=== PATIENT | female | born 1940 | race Caucasian/White ===

== ENCOUNTER 2017-06-27 08:34 | Emergency (ER) | payer OTHER ==
[~2017-06-27] VITALS: Ht 160 cm; Wt 56.7 kg
[~2017-06-27 08:34] MED LIST: ASPIRIN325 PO; AUGMENTIN 875875 M1 PO; CALCIUM 600 +1 EA11 PO; COLACE 100 MG100 MG PO; ENOXAPARIN30 MG/0.1 INJECTION; FISH OIL 1,0001 EAC8 PO; MACUVITE TABLE1 EACH PO; MULTIVITAMINS PO; NORCO 5-325 TA1 EACH PO; OXYCODONE HCL 55 MG; OXYIR 5 MG CAPSU5 M1 PO; RED YEAST RICE600 MG PO; VITAMIN B-12500 MCG PO; VITAMIN D1000 UNI1 PO; VOLTAREN GEL 1100 G1
[2017-06-27 09:53] LABS: ABSOLUTE LYMPHOCYTES 0.6 thou/uL (0.8-5.3); ABSOLUTE MONOCYTES 0.5 thou/uL (0.0-1.2); ABSOLUTE NEUTROPHILS 4.9 thou/uL (1.6-8.1); BASOPHILS 0.2 %; EOSINOPHILS 0.3 %; HEMATOCRIT 38.1 % (37.0-47.0); HEMOGLOBIN 12.8 gm/dL (12.0-15.0); LYMPHOCYTES 10.5 %; MCH 29.9 pg (26.0-34.0); MCHC 33.8 g/dL (28.0-37.0); MCV 88.6 fL (80.0-100.0); MONOCYTES 8.2 %; MPV 9.1 fl. (7.2-11.1); NUCLEATED RBCS 0 /100WBC; PLATELET COUNT* 163 thou/uL (150-400); POLYS 80.8 %; RDW-CV 13.2 % (10.5-14.5); WBC 6.1 thou/uL (4.0-11.0)
[2017-06-27 10:00] LABS: CALCIUM 8.3 mg/dL (8.5-10.1); CREATININE 0.7 mg/dL (0.6-1.3); POTASSIUM 3.6 mmol/L (3.5-5.1)
[2017-06-27 10:05] LABS: ALBUMIN 3.1 g/dL (3.4-5.0); TOTAL BILIRUBIN 0.6 mg/dL (<0.1-1.0)
[2017-06-27] MEDS ORDERED: MEDROLDOSEPACK PO (11:20)
[2017-06-27] MEDS ORDERED: WHEELCHAIR1 EACH MISCELL (11:20)
[2017-06-27 11:37] VITALS: BP 128/40
== END 2017-06-27 11:38 | disposition home or self-care (01) ==
LOC: M.ERS 08:34
PROVIDERS: Personal Emergency Response Attendant
DX: S82.892A Other fracture of left lower leg, initial encounter for closed fracture (principal); J06.9 Acute upper respiratory infection, unspecified; B97.89 Other viral agents as the cause of diseases classified elsewhere; M81.0 Age-related osteoporosis without current pathological fracture; Z98.890 Other specified postprocedural states; Z96.651 Presence of right artificial knee joint

== ENCOUNTER → 2017-11-23 | Outpatient (CLI) | payer OTHER ==
[~2017-11-23] MED LIST changes: +MEDROLDOSEPACK PO; +WHEELCHAIR1 EACH MISCELL
== END ==
LOC: M.RAD 09:45
DX: Z12.31 Encounter for screening mammogram for malignant neoplasm of breast (principal)

== ENCOUNTER → 2018-11-29 | Outpatient (CLI) | payer OTHER | LOC: M.RAD 08:52 | DX: Z12.31 Encounter for screening mammogram for malignant neoplasm of breast (principal) ==

== ENCOUNTER → 2019-12-03 | Outpatient (CLI) | payer OTHER | LOC: M.RAD 14:00 | PROVIDERS: ATTEND Family Medicine | DX: Z12.31 Encounter for screening mammogram for malignant neoplasm of breast (principal) ==

== ENCOUNTER → 2020-06-03 | Outpatient (CLI) | payer OTHER ==
--- NOTE | 2020-06-03 16:36 | 2DMMODE ---
[place] [address] 2 D/M-MODE ECHOCARDIOGRAM Name: FE BLOCK Room: [facility]#: [id number] Admission: 06/03/20 Attend Phys: Yan Guan Discharge: Date of : 40 Date of Service: 06/03/20 1636 Report #: [id number] THIS REPORT FOR: cc: Elliott Marr MD, Matthew W. MD Liston, Michael J. MD [facility] ~ APPROVED REPORT Study performed: 06/03/2020 13:53:27 EXAM: Comprehensive 2D, Doppler, and color-flow Echocardiogram Patient Location: Out-Patient BSA: 1.58 HR: 60 bpm BP: 134/60 mmHg Other Information Study Quality: Good Indications Murmur 2D Dimensions IVSd: 10.86 (7-11mm) LVOT Diam: 20.27 (18-24mm) LVDd: 42.47 mm PWd: 10.26 (7-11mm) Ascending Ao: 27.33 (22-36mm) LVDs: 23.20 (25-40mm) Aortic Root: 29.37 mm Volumes Left Atrial Volume (Systole) LA ESV Index: 13.00 mL/m2 Aortic Valve AoV Peak Jas.: 1.00 m/s AO Peak Gr.: 3.97 mmHg LVOT Max P.39 mmHg AO Mean Gr.: 1.89 mmHg LVOT Mean P.13 mmHg LVOT Max V: 0.77 m/s AO V2 VTI: 21.09 cm LVOT Mean V: 0.49 m/s CHIP (VTI): 2.97 cm2 LVOT V1 VTI: 19.39 cm AI [place]: 2.63 m/s2 AI PHT: 428.90 [place] [address] 2 D/M-MODE ECHOCARDIOGRAM Name: FE BLOCK Room: [facility]#: [id number] Admission: 06/03/20 Attend Phys: Yan Guan Discharge: Date of : 40 Date of Service: 06/03/20 1636 Report #: [id number] Mitral Valve E/A Ratio: 0.95 MV Decel. Time: 167.83 ms MV E Max Jas.: 0.60 m/s MV PHT: 48.67 ms MVA (PHT): 4.52 cm2 TDI E/Lateral E': 7.50 E/Medial E': 7.50 Medial E' Jas.: 0.08 m/s Lateral E' Jas.: 0.08 m/s Pulmonary Valve PV Peak Jas.: 0.76 m/s PV Peak Gr.: 2.33 mmHg Tricuspid Valve RAP Estimate: 5.00 mmHg TR Peak Gr.: 19.87 mmHg RVSP: 24.87 mmHg PA Pressure: 24.87 mmHg Left Ventricle The left ventricle is normal size. There is normal LV segmental wall motion. There is normal left ventricular wall thickness. Left ventricular systolic function is normal. LVEF is 55-60%. Grade I - abnormal relaxation pattern. Right Ventricle The right ventricle is normal size. The right ventricular systolic function is normal. Atria The left atrium size is normal. The right atrium size is normal. Aortic Valve The aortic valve is normal in structure. Mild to moderate aortic regurgitation. There is no aortic valvular stenosis. Mitral Valve The mitral valve is normal in structure. Mild mitral regurgitation. No evidence of mitral valve stenosis. Tricuspid Valve The tricuspid valve is normal in structure. Mild tricuspid regurgitation[place] [address] 2 D/M-MODE ECHOCARDIOGRAM Name: FE BLOCK Gi[place]any Room: [facility]#: [id number] Admission: 06/03/20 Attend Phys: Yan Guan Discharge: Date of : 40 Date of Service: 06/03/20 1636 Report #: [id number] Pulmonic Valve The pulmonary valve is normal in structure. Mild pulmonic regurgitation. Great Vessels The aortic root is normal in size. IVC is normal in size and collapses >50% with inspiration. Pericardium There is no pericardial effusion. <Conclusion> The left ventricle is normal size. There is normal left ventricular wall thickness. Left ventricular systolic function is normal. LVEF is 55-60%. Grade I - abnormal relaxation pattern. Mild to moderate aortic regurgitation. Mild mitral regurgitation. Mild tricuspid regurgitation. No pulmonary hypertension. IVC is normal in size and collapses >50% with inspiration. <ELECTRONICALLY SIGNED> By: Josiah Schroeder MD, FACC 06/03/20 1636 1636 1636 Josiah Schroeder MD, FACC /INF
== END ==
LOC: M.CRD 05-29 15:53
PROVIDERS: ATTEND Family Medicine
DX: I08.3 Combined rheumatic disorders of mitral, aortic and tricuspid valves (principal); M85.88 Other specified disorders of bone density and structure, other site; M81.0 Age-related osteoporosis without current pathological fracture

== ENCOUNTER 2020-11-24 10:12 | Emergency (ER) | payer OTHER ==
[~2020-11-24] VITALS: Ht 160 cm; Wt 55.8 kg
[2020-11-24] MEDS ORDERED: EYE DROPS (10:25)
[2020-11-24] MEDS ORDERED: KEFLEX250 MG PO ×2 (12:10→12:27)
[2020-11-24 12:32] VITALS: BP 150/65
== END 2020-11-24 12:32 | disposition home or self-care (01) ==
LOC: M.ERS 10:12
DX: S41.012A Laceration without foreign body of left shoulder, initial encounter (principal); M70.62 Trochanteric bursitis, left hip; Z90.49 Acquired absence of other specified parts of digestive tract; Z96.651 Presence of right artificial knee joint; W18.39XA Other fall on same level, initial encounter; Y93.89 Activity, other specified; Y92.89 Other specified places as the place of occurrence of the external cause; Y99.8 Other external cause status

== ENCOUNTER → 2021-03-17 | Outpatient (CLI) | payer OTHER ==
[~2021-03-17] MED LIST changes: +EYE DROPS; +KEFLEX250 MG PO
== END ==
LOC: M.RAD 09:00
PROVIDERS: ATTEND Family Medicine
DX: Z12.31 Encounter for screening mammogram for malignant neoplasm of breast (principal)